=== PATIENT | male | born 1990 | race African-American/Black ===

== ENCOUNTER 2017-08-28 21:51 | Emergency (ER) | payer MEDICAID, OTHER ==
[~2017-08-28] VITALS: Ht 175.3 cm; Wt 83.9 kg
[2017-08-28] MEDS ORDERED: ALBUTEROL2.5 MG/3 M INH (21:59)
[2017-08-28] MEDS ORDERED: Morphine Sulfate 4mg/ml Inj IM ONE (22:15)
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
[2017-08-28 22:20] VITALS: BP 130/71
[2017-08-28] MEDS ORDERED: Norco 5mg/325mg tab ONE (23:27)
[2017-08-28 23:39] LABS: APPEARANCE,URINE CLEAR; BILIRUBIN, URINE 1+ (NEGATIVE); GLUCOSE, URINE (UA) NEGATIVE (NEGATIVE); KETONES,URINE 1+ (NEGATIVE); LEUKOCYTE ESTERASE ,URINE 1+ (NEGATIVE); NITRITE,URINE NEGATIVE (NEGATIVE); PH,URINE 6 (4.5-8.0); PROTEIN,URINE 2+ (NEGATIVE); UROBILINOGEN,URINE 1 MG/DL (0.0-1.0)
[2017-08-29] MEDS ORDERED: Norco 5mg/325mg tab ORAL ONE
[2017-08-29 00:03] LABS: COLOR,URINE YELLOW
[2017-08-29] MEDS ORDERED: HYDROCODON-ACE1 EA15 ORAL (00:11)
[2017-08-29] MEDS ORDERED: IBUPROFEN600 MG ORAL (00:11)
[2017-08-29 00:22] VITALS: BP 130/71
== END 2017-08-29 00:25 | disposition home or self-care (01) ==
LOC: EMR 22:10
DX: M25.852 Other specified joint disorders, left hip (principal); J45.909 Unspecified asthma, uncomplicated
CPT/HCPCS: 81003; 96372; 99284; J2270

== ENCOUNTER 2018-10-13 09:20 | Emergency (ER) | payer OTHER ==
[~2018-10-13] VITALS: Ht 175.3 cm; Wt 83.9 kg
[~2018-10-13 09:20] MED LIST: ALBUTEROL2.5 MG/3 M INH; HYDROCODON-ACE1 EA15 ORAL; IBUPROFEN600 MG ORAL
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
[2018-10-13 09:35] VITALS: BP 118/72
--- NOTE | 2018-10-13 10:03 | NUR ---
ED Nurse Note: RADIOLOGY CALLED FOR CT.
--- NOTE | 2018-10-13 10:15 | NUR ---
ED Nurse Note: PT TO CT.
--- NOTE | 2018-10-13 10:24 | NUR ---
ED Nurse Note: PT BACK FROM CT.
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
[2018-10-13] MEDS ORDERED: Ketorolac 60mg Inj IM ONE (11:30)
--- NOTE | 2018-10-13 12:02 | NUR ---
ED Nurse Note: RADIOLOGY CALLED FOR MRI.
--- NOTE | 2018-10-13 12:06 | NUR ---
ED Nurse Note: PT TO MRI.
--- NOTE | 2018-10-13 12:36 | NUR ---
ED Nurse Note: PT BACK FROM MRI.
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
[2018-10-13 13:24] VITALS: BP 114/70
--- NOTE | 2018-10-13 13:25 | NUR ---
ED Nurse Note: PT SITTING PEACEFULLY IN CHAIR IN NAD. AOX4. DISCHARGE PAPERWORK EXPLAINED TO PT. PT VERBALIZES UNDERSTANDING AND ALL QUESTIONS ANSWERED. DISCHARGE PAPERWORK GIVEN TO PT AND ID WRISTBAND REMOVED. PT WALKED OUT OF ER WITH STEADY GAIT AND ALL BELONGINGS.
== END 2018-10-13 13:25 | disposition home or self-care (01) ==
LOC: EMR 09:45
DX: S23.3XXA Sprain of ligaments of thoracic spine, initial encounter (principal); M54.2 Cervicalgia; V29.9XXA Motorcycle rider (driver) (passenger) injured in unspecified traffic accident, initial encounter; Y92.410 Unspecified street and highway as the place of occurrence of the external cause
CPT/HCPCS: 72125; 72128; 72141; 99284